=== PATIENT | male | born 1985 | race Two or more races ===

== ENCOUNTER 2022-08-27 13:51 | Emergency (ER) | payer BC ==
[~2022-08-27] VITALS: Ht 165.1 cm; Wt 74.8 kg
--- NOTE | 2022-08-27 14:41 | NUR ---
TAKEN TO CT VIA [facility]
[2022-08-27 15:37] LABS: CALCIUM, SERUM 9.2 mg/dL (8.5-10.1); CREATININE 1.4 mg/dL (0.6-1.3); POTASSIUM 3.7 mmol/L (3.5-5.1)
[2022-08-27 15:44] LABS: BILIRUBIN,DIRECT 0.1 mg/dL (0.0-0.2); BILIRUBIN,TOTAL 0.3 mg/dL (0.2-1.0); TOTAL PROTEIN, SERUM 7.6 g/dL (6.4-8.2)
[2022-08-27 17:15] LABS: HEMATOCRIT 41 % (39-51); MEAN CORPUSCULAR HGB CONC 32 g/dl (31.0-36.0); MEAN CORPUSCULAR VOLUME 95 fL (80-96); RED BLOOD CELL COUNT(AUTO) 4.28 MIL/uL (4.5-6.0)
[2022-08-27 17:16] LABS: BASOPHILS % (AUTO) 0.7 % (0.0-2.0); EOSINOPHILS % (AUTO) 3.5 % (0.0-6.0); LYMPHOCYTES # (AUTO) 1.4 K/uL (0.8-4.8); LYMPHOCYTES % (AUTO) 23.4 % (20.0-44.0); MONOCYTES # (AUTO) 0.6 K/uL (0.1-1.30); MONOCYTES % (AUTO) 9.3 % (2.0-12.0); NEUTROPHILS # (AUTO) 3.8 K/uL (1.8-8.9); NEUTROPHILS % (AUTO) 63.1 % (43.0-81.0); PLATELET COUNT (AUTO) 271 K/uL (150-450)
[2022-08-27] MEDS ORDERED: PANT40TA2 PO (17:29)
--- NOTE | 2022-08-27 17:45 | NUR ---
Patient discharged to home in stable condition. Written and verbal after care instructions given. Patient verbalizes understanding of instruction.
[2022-08-27 17:46] VITALS: BP 123/74
== END 2022-08-27 17:46 | disposition home or self-care (01) ==
LOC: ER 14:08
DX: K62.5 Hemorrhage of anus and rectum (principal); R10.9 Unspecified abdominal pain
CPT/HCPCS: 36415; 80048-TC; 80076-TC; 83690-TC; 85025-TC; 85730-TC

== ENCOUNTER 2023-08-15 21:18 | Emergency (ER) | payer SELFPAY ==
[~2023-08-15] VITALS: Ht 165.1 cm; Wt 104.3 kg
[~2023-08-15 21:18] MED LIST: LANS15CA13 PO; PANT40TA2 PO
[2023-08-15 21:22] VITALS: TEMP 98.2
[2023-08-15 23:43] LABS: HEMOGLOBIN 13.7 g/dL (13.5-17.5); WHITE BLOOD COUNT (AUTO) 7.1 K/uL (4.3-11.0)
[2023-08-15 23:50] LABS: CALCIUM, SERUM 9.3 mg/dL (8.5-10.1); CREATININE 1.3 mg/dL (0.6-1.3); POTASSIUM 4.5 mmol/L (3.5-5.1)
[2023-08-16 00:05] LABS: BASOPHILS % (AUTO) 0.6 % (0.0-2.0); EOSINOPHILS % (AUTO) 0.4 % (0.0-6.0); HEMATOCRIT 42 % (39-51); LYMPHOCYTES # (AUTO) 1.6 K/uL (0.8-4.8); MEAN CORPUSCULAR HEMOGLOBIN 28 PG (26.0-33.0); MEAN CORPUSCULAR HGB CONC 33 g/dl (31.0-36.0); MEAN CORPUSCULAR VOLUME 87 fL (80-96); MONOCYTES # (AUTO) 1.1 K/uL (0.1-1.30); MONOCYTES % (AUTO) 15.3 % (2.0-12.0); NEUTROPHILS # (AUTO) 4.3 K/uL (1.8-8.9); NEUTROPHILS % (AUTO) 60.7 % (43.0-81.0); PLATELET COUNT (AUTO) 284 K/uL (150-450); RED BLOOD CELL COUNT(AUTO) 4.84 MIL/uL (4.5-6.0); RED CELL DISTRIBUTION WIDTH 15.8 % (11.5-15.0)
[2023-08-16 00:46] LABS: LYMPHOCYTES % (MANUAL) 22 % (16-48); MONOCYTES % (MANUAL) 14 % (0-11.0); NEUTROPHILS % (MANUAL) 64 (42-76); PLATELET ESTIMATE ADEQUATE
[2023-08-16] MEDS ORDERED: ACETAMINOPHEN 650 MG/20.3 ML UDC PO ONE (02:00)
[2023-08-16] MEDS ORDERED: ACETAMINOPHEN 325 MG TABLET ONE (02:16)
[2023-08-16 02:49] VITALS: BP 146/91; O2SAT 98
== END 2023-08-16 02:51 | disposition home or self-care (01) ==
LOC: ER 21:19
DX: F15.129 Other stimulant abuse with intoxication, unspecified (principal); Z79.899 Other long term (current) drug therapy
CPT/HCPCS: 36415; 80048-TC; 85025-TC